=== PATIENT | male | born 1990 ===

== ENCOUNTER 2017-10-03 05:29 | Emergency (ER) | payer OTHER ==
[2017-10-03 05:54] VITALS: BMI 41.5
--- NOTE | 2017-10-03 06:25 | ED PDOC ---
HPI: SOB/CHF/COPD Time Seen by Provider: 10/03/17 05:30 Chief Complaint (Nursing): Shortness Of Breath Chief Complaint (Provider): Shortness of breath History Per: Patient History/Exam Limitations: no limitations Onset/Duration Of Symptoms: Days (x2 weeks), Worse Since (today) Current Symptoms Are (Timing): Still Present Exacerbating Factor(s): Laying Flat Current Respiratory Medications: None Associated Symptoms: denies: Fever, Chills, Chest Pain, Productive Cough, Other (vomiting, abdominal pain) Additional Complaint(s): Shantanu Myers is a 27 year old male, with no past medical history, who presents to the emergency department complaining of shortness of breath onset for x2 weeks. Patient states symptoms are worst when lying flat. Patient noted to have high blood pressure. He reports being in the ER last year for high blood pressure but denies following up or taking any medications. He denies any fever, cough, chest pain, vomit, or abdominal pain. No further medical complaints. PMD: None provided. Past Medical History Reviewed: Historical Data, Nursing Documentation, Vital Signs Vital Signs: Last Vital Signs Temp 97.8 F 10/03/17 07:35 Pulse 83 10/03/17 07:35 Resp 20 10/03/17 07:35 BP 187/107 H 10/03/17 07:35 Pulse Ox 97 10/03/17 10:50 - Surgical History Surgical History: No Surg Hx - Family History Family History: States: Hypertension - Social History Current smoker - smoking cessation education provided: Yes (light smoker <10 cigarettes daily) Alcohol: Social Drugs: Denies - Home Medications Home Medications: Ambulatory Orders Medication Instructions Recorded Atenolol [Tenormin] 25 mg PO DAILY #30 tab 10/03/17 - Allergies Allergies/Adverse Reactions: Allergies Allergy/AdvReac Type Severity Reaction Status Date / Time No Known Allergies Allergy Verified 10/03/17 05:53 Review of Systems ROS Statement: Except As Marked, All Systems Reviewed And Found Negative Constitutional: Negative for: Fever Cardiovascular: Negative for: Chest Pain Respiratory: Positive for: Shortness of Breath (worst lying flat). Negative for : Cough Gastrointestinal: Negative for: Vomiting, Abdominal Pain Physical Exam - Reviewed Nursing Documentation Reviewed: Yes Vital Signs Reviewed: Yes - Physical Exam Appears: Positive for: Well (obese) Head Exam: Positive for: ATRAUMATIC, NORMAL INSPECTION Skin: Positive for: Normal Color, Warm, Dry Eye Exam: Positive for: Normal appearance, EOMI, PERRL Neck: Positive for: Normal, Painless ROM, Supple Cardiovascular/Chest: Positive for: Regular Rate, Rhythm. Negative for: Murmur Respiratory: Positive for: Normal Breath Sounds. Negative for: Respiratory Distress Gastrointestinal/Abdominal: Positive for: Normal Exam, Soft. Negative for: Tenderness Extremity: Positive for: Normal ROM. Negative for: Pedal Edema, Deformity, Swelling Neurologic/Psych: Positive for: Alert, Oriented (x3). Negative for: Motor/ Sensory Deficits - Laboratory Results Result Diagrams: 10/03/17 06:30 10/03/17 06:30 - ECG ECG Rhythm: Positive for: Sinus Tachycardia Interpretation Of Abn EKG: T wave inversion of V6 Rate: 105 O2 Sat by Pulse Oximetry: 97 (RA) Pulse Ox Interpretation: Normal Medical Decision Making Medical Decision Making: Initial Impression: Hypertension Initial Plan: --Comp Metabolic Panel --Troponin I --CBC w/ differential --Chest portable [RAD] --Trandate 20 mg IVP --reevaluation 07:00 --Patient will be signed out to Dr. Alejo, pending work up. Scribe Attestation: Documented by Juan Mendoza, acting as a scribe for Vipin Colin MD Provider Scribe Attestation: All medical record entries made by the Scribe were at my direction and personally dictated by me. I have reviewed the chart and agree that the record accurately reflects my personal performance of the history, physical exam, medical decision making, and the department course for this patient. I have also personally directed, reviewed, and agree with the discharge instructions and disposition. Disposition - Clinical Impression Clinical Impression: Hypertension - Patient ED Disposition Is Patient to be Admitted: Transfer of Care - Disposition Referrals: [facility] [Outside] Disposition: Transfer of Care Disposition Time: 07:00 Condition: STABLE Prescriptions: Atenolol [Tenormin] 25 mg PO DAILY #30 tab Instructions: Hypertension (ED) Forms: [employer] (Canadian)
[2017-10-03] MEDS ORDERED: Labetalol 5 mg/ml Inj 20ML IVP STA (06:30)
[2017-10-03] MEDS ORDERED: Labetalol 5mg/ml (4ml) ONE (06:33)
[2017-10-03 06:38] LABS: BASO # 0.1 K/uL (0.0-0.2); BASO % 0.8 % (0.0-2.0); EOS # 0.1 K/uL (0.0-0.7); EOS % 1.3 % (0.0-4.0); HEMOGLOBIN 15.6 g/dL (12.0-18.0); LYMPH # 2.3 K/uL (1.0-4.3); LYMPH % 21.3 % (20.0-40.0); MEAN CELL VOLUME 89.8 fl (80.0-94.0); MEAN CORPUSCULAR HEMOGLOBIN 30.2 pg (27.0-31.0); MEAN CORPUSCULAR HGB CONC 33.7 g/dL (33.0-37.0); MEAN PLATELET VOLUME 8.5 fl (7.2-11.7); MONO # 0.6 K/uL (0.0-0.8); MONO % 5.3 % (0.0-10.0); NEUT # 7.6 K/uL (1.8-7.0); NEUT % 71.3 % (50.0-75.0); NRBC % 0.1 % (0.0-0.0); RBC 5.15 Mil/uL (4.40-5.90); RED CELL DISTRIBUTION WIDTH 13.3 % (11.5-14.5); WHITE BLOOD COUNT 10.7 K/uL (4.8-10.8)
[2017-10-03 06:56] LABS: ALB/GLOB RATIO 1.2 (1.0-2.1); ALBUMIN 4.1 g/dL (3.5-5.0); ALT/SGPT 67 U/L (21-72); AST/SGOT 33 U/L (17-59); BLOOD UREA NITROGEN 16 mg/dl (9-20); CALCIUM 8.6 mg/dL (8.4-10.2); GFR AFRICAN-AMERICAN > 60; GFR NON-AFRICAN AMERICAN > 60
--- NOTE | 2017-10-03 07:23 | ED PDOC ---
- Laboratory Results Result Diagrams: 10/03/17 06:30 10/03/17 06:30 - ECG O2 Sat by Pulse Oximetry: 97 (RA) Medical Decision Making Medical Decision Makin --Patient is signed over to me by Dr. Colin pending workup. Scribe Attestation: Documented by Ramon Nazario acting as a scribe for Tyrese Alejo MD. Scribe Attestation: All medical record entries made by the Scribe were at my direction and personally dictated by me. I have reviewed the chart and agree that the record accurately reflects my personal performance of the history, physical exam, medical decision making, and the department course for this patient. I have also personally directed, reviewed, and agree with the discharge instructions and disposition. Disposition - Clinical Impression Clinical Impression: Hypertension - POA Present On Arrival: None - Disposition Referrals: [facility] [Outside] Disposition: Routine/Home Disposition Time: 10:49 Condition: FAIR Prescriptions: Atenolol [Tenormin] 25 mg PO DAILY #30 tab Instructions: Hypertension (ED) Forms: [email or web address] (Macedonian)
[2017-10-03 07:37] VITALS: BP 187/107; RESP 20; TEMP 97.8
--- NOTE | 2017-10-03 10:15 | RAD ---
HISTORY: sob COMPARISON: 09/26/2013 FINDINGS: LUNGS: Examination limited due to underpenetration. No pulmonary infiltrate. PLEURA: No significant pleural effusion identified, no pneumothorax apparent. CARDIOVASCULAR: Normal. OSSEOUS STRUCTURES: No significant abnormalities. VISUALIZED UPPER ABDOMEN: Normal. OTHER FINDINGS: None. IMPRESSION: No active disease.
[2017-10-03 10:50] VITALS: O2SAT 97
--- NOTE | 2017-10-03 17:36 | CARD ---
APPROVED REPORT EKG Measurement Heart [id number] <Conclusion> Sinus tachycardia Possible Left atrial enlargement Left axis deviation Incomplete left bundle branch block ST & T wave abnormality, consider lateral ischemia Abnormal ECG
[2017-10-03 21:46] VITALS: PULSE 105
== END 2017-10-03 11:06 | disposition home or self-care (01) ==
LOC: H.ER 05:29
DX: I10 Essential (primary) hypertension (principal); J44.9 Chronic obstructive pulmonary disease, unspecified; F17.210 Nicotine dependence, cigarettes, uncomplicated